=== PATIENT | male | born 1980 | race Caucasian/White ===

== ENCOUNTER 2019-12-03 23:14 | Emergency (ER) | payer SELFPAY ==
[2019-12-03 23:19] VITALS: BP 116/93; PULSE 97; RESP 18; TEMP 36.7; O2SAT 96; BMI 27.3
[2019-12-03 23:25] VITALS: PULSE 100
--- NOTE | 2019-12-03 23:25 | XRR_ITS ---
PROCEDURE INFORMATION: Exam: XR Left Hand Exam date and time: 12/03/2019 11:48 PM Age: 39 years old Clinical indication: Injury or trauma; Injury history: Smash injury 1 week ago; Initial encounter; Crushing; Hand; Left; Injury details: Smashed 3rd digit one week ago, now with pain redness swelling; Prior surgery; Surgery type: PT amputated 5th digit; Additional info: Smash injury to middle finger TECHNIQUE: Imaging protocol: XR Left hand. Views: Frontal, lateral, and oblique views. COMPARISON: No relevant prior studies available. FINDINGS: Bones/joints: No acute bony abnormality identified. Soft tissues: Third digit soft tissue swelling. XR/XR hand LT min 3V* [id number] IMPRESSION: No acute bony injury identified.
[2019-12-03] MEDS: HYDROcodone-acetaminophen 7.5-325 mg Tablet 1 TAB PO (23:28)
--- NOTE | 2019-12-03 23:28 | ED_ITS ---
HPI - Extremity Problem General: Chief complaint: Extremity Injury, Upper Stated complaint: smash finger with hammer Time Seen by Provider: 12/03/19 23:19 History of Present Illness: HPI Narrative: Patient is a 39-year-old male who comes to the ED with a smash injury to finger on left hand. Patient says about a week ago he smashed his third digit on left hand with a hammer twice in 1 day. Since injury it is continued to swell and become more painful. He reports pain is a 10 out of 10. Patient also says that he stepped on a nail a week ago., But does not believe in getting a tetanus shot. Associated symptoms: Deny chest pain, fever(s) or rash Review of Systems Const: Denies: fever(s), chills or fatigue Eyes: Denies: change in vision or eye discomfort ENMT: Denies: throat pain, odynophagia, nasal discharge or nasal congestion Card: Denies: chest pain, palpitations, edema, swelling of feet/ankles, dyspnea on exertion or orthopnea Resp: Denies: dyspnea, productive cough or non-productive cough GI: Denies: abdominal pain, nausea, vomiting, diarrhea, constipation or hematochezia : Denies: flank pain, difficulty urinating, dysuria or hematuria Musc: Reports: extremity pain (pain in 3rd digit of left hand) and extremity swelling (Third digit of left hand.); Denies: neck pain or back pain Skin/Breast: Reports: sores (Patient has 2 sores that have scabbed over on third digit of left hand); Denies: rash or new lesions Neuro: Denies: headache(s), numbness in extremities or weakness in extremities Physical Exam Const: COMMON NORMALS: patient oriented x3 and alert GENERAL APPEARANCE: cooperative; not comfortable (Patient appears uncomfortable and in pain due to left finger injury.) HENMT: COMMON NORMALS: normocephalic HEAD & SCALP: normocephalic MOUTH: Normal oral and palatal mucosa present THROAT: posterior oropharynx normal and uvula midline Neck/C-Spine: COMMON NORMALS: supple GENERAL: Yes normal visual inspection Resp: COMMON NORMALS: normal respiratory effort, No retractions, No use of accessory muscles and clear to auscultation bilaterally AUSCULTATION: clear to auscultation bilaterally Cardio: COMMON NORMALS: regular rate, regular rhythm, S1 normal heart sound present, S2 normal heart sound present, No gallops present (Cardio), No clicks present (Cardio), No murmurs present (Cardio) and Peripheral pulses 2+ throughout RATE: regular rate RHYTHM: regular rhythm HEART SOUNDS: S1 normal heart sound present and S2 normal heart sound present PERIPHERAL PULSES: Peripheral pulses 2+ throughout GI: COMMON NORMALS: Normal to inspection, nondistended, normoactive bowel sounds present, Soft to palpation, non-tender and no masses PALPATION: Yes Soft to palpation : COMMON NORMALS: Yes no CVA tenderness BLADDER/KIDNEY EXAM: Yes no CVA tenderness Back/Pelvis: COMMON NORMALS: no CVA tenderness Extremity: NARRATIVE EXTREMITY EXAM: Third digit of left hand has significant edema around the PIP joint. There also 2 abrasions that are currently healing well and have scabs on them and these are both located on the third digit of left hand as well. There is warmth, tenderness and surrounding erythema which is suggestive of cellulitis. GENERAL: Yes normal exam except as noted Neuro: COMMON NORMALS: patient oriented x3 and moves all extremities SENSORIUM/ORIENTATION: Yes alert Skin: GENERAL SKIN EXAM: dry skin Course Vital Signs: Vital signs: Vital Signs Temperature 98.1 F 12/03/19 23:19 Pulse Rate 95 12/04/19 00:40 Respiratory Rate 18 12/04/19 00:40 Blood Pressure 116/93 12/03/19 23:19 Pulse Oximetry 96 12/04/19 00:40 MDM - Extremity (Nontraumatic) MDM Narrative: Medical decision making narrative: Patient is a 39-year-old male comes to the ED with a smash injury to third digit on left hand. Patient says approximately a week ago he hit his third digit twice with a hammer. Injury also created some abrasions to third digit a week ago. Patient now has increased swelling to finger and pain. Exam shows some swelling to the PIP joint of third digit of left hand. There is also some erythema, tenderness and warmth present around abrasions on third digit, suggestive of cellulitis. X-ray of left hand showed possible old fracture that is healing of the proximal phalanx. Due to patient's swelling and pain and mechanism of injury placed an order with case management for patient be referred to orthopedic. Patient refused tetanus shot and says he does not believe in getting them. I gave patient IM morphine and it helped his pain greatly. He was given a dose of Bactrim while here in the ED for cellulitis and sent home with a prescription of Bactrim. I told patient to return to the ED in the next couple of days if symptoms do not improve. I informed him that case management should be contacting him in the next several days to set up an appointment with orthopedic doctor. Rest, apply cold pack and take ibuprofen for pain. Patient understood and agreed with plan. Imaging Data^: Xray Ortho: Attestation: I personally reviewed and interpreted this imaging study as follows: My impression: Left hand [id number] fracture and started healing on proximal phalange bone of third digit. Discharge Plan Discharge Patient Disposition: Home Clinical Impression: Cellulitis Qualifiers: Site of cellulitis: extremity Site of cellulitis of extremity: finger Laterality: left Qualified Code(s): L03.012 - Cellulitis of left finger Injury, crush, finger Qualifiers: Encounter type: initial encounter Qualified Code(s): S67.10XA - Crushing injury of unspecified finger(s), initial encounter Condition: Stable Prescriptions: New Bactrim DS 800-160 mg tablet 1 tab PO BID 7 Days Qty: 14 RF: 0 Discharge Orders: Discharge Order (Routine); Ordered 12/04/19 Ordered By: Charlie Perez Discharge Diet: Regular Discharge Activity: Increase activity as tolerated Patient Instructions: Cellulitis (ED) Activity Restrictions/Additional Instructions: Follow-up with medical provider as directed. Case management should be contacting you in the next several days set up an appointment with orthopedic doctor. Take medications as prescribed. Take ibuprofen or Tylenol for pain. R eturn to the ER or your medical provider if condition worsens. Please read and understand discharge instructions. If any questions, please ask. Discharge Date/Time: 12/04/19 00:41 Coding Level of Care Code ED Farm Machine Operator for Karey Ayers Exam Comprehensive
[2019-12-04 00:07] VITALS: RESP 24
[2019-12-04] MEDS: morphine 4 mg/mL SDV 1 mL IM (00:07)
[2019-12-04] MEDS: sulfamethoxazole-trimeth DS 160-800 mg Tablet 1 TAB PO (00:09)
[2019-12-04] MEDS: HYDROcodone-acetaminophen 7.5-325 mg Tablet 2 TAB PO (00:35)
[2019-12-04 00:40] VITALS: PULSE 95; RESP 18; O2SAT 96
--- NOTE | 2019-12-04 09:50 | DCPLANNER ---
manager ecommerce had message to schedule a follow up appointment for patient with ortho. manager ecommerce called the ortho clinic, spoke with Margaret, gave clinic patients information. manager ecommerce was told that patients information would be printed and reviewed. Clinic will call patient with appointment information.
--- NOTE | 2019-12-04 15:37 | DCPLANNER ---
Isabela from ortho called case management manager and informed case management manager that after patients information was reviewed, that it is recommended that patient follow up with primary care physician. If patient is still having pain in the future that he can be referred back to the clinic from his primary care. Clinic has spoke with patient about this and patient is understanding.
== END 2019-12-04 00:41 | disposition home or self-care (01) ==
PROVIDERS: Emergency Provider Physician Assistant
DX: S67.193A Crushing injury of left middle finger, initial encounter (principal); L03.012 Cellulitis of left finger; W20.8XXA Other cause of strike by thrown, projected or falling object, initial encounter
CPT/HCPCS: 12345; 73130; 96372; 99281; 99282; 99283; J2270

== ENCOUNTER 2020-09-09 15:01 | Emergency (ER) | payer MEDICAID, SELFPAY ==
[2020-09-09 15:25] VITALS: BP 163/77; PULSE 93; RESP 18; TEMP 36.7; O2SAT 99; BMI 26.2
[2020-09-09 16:00] LABS: Basophils # 0.1 10^3/uL (0.0-0.1); Basophils % 0.6 %; Eosinophils # 0.9 10^3/uL (0.0-0.8); Eosinophils % 9.4 %; Hematocrit 29.8 % (42.0-52.0); Hemoglobin 9.9 g/dL (11.7-16.6); Lymphocytes # 3.3 10^3/uL (0.8-4.8); Lymphocytes % 34.8 %; Mean Corpuscular HGB Conc 33.2 g/dL (30.0-36.0); Mean Corpuscular Hemoglobin 29.6 pg (28.0-34.0); Mean Platelet Volume 10.2 fL (7.4-10.4); Monocytes # 0.5 10^3/uL (0.2-0.9); Monocytes % 5.6 %; Neutrophils # 4.67 10^3/uL (1.8-7.7); Neutrophils % 49.3 %; Nucleated Red Blood Cells % 0 %; Platelet Count 270 10^3/cmm (130-400); Red Blood Count 3.35 10^6/uL (4.1-5.3); Red Cell Distribution Width 12.7 % (12.1-15.1); White Blood Count 9.5 10^3/uL (4.0-10.0)
--- NOTE | 2020-09-09 16:11 | CTR_ITS ---
PROCEDURE INFORMATION: Exam: CT Abdomen And Pelvis With Contrast Exam date and time: 09/09/2020 4:11 PM Age: 40 years old Clinical indication: Other: Bloody stool; Abdominal pain; Localized; Left lower quadrant (llq); Additional info: Acute gi bleed. Bright blood/rectum. Large quantity TECHNIQUE: Imaging protocol: Computed tomography of the abdomen and pelvis with contrast. Radiation optimization: All CT scans at this facility use at least one of these dose optimization techniques: automated exposure control; mA and/or kV adjustment per patient size (includes targeted exams where dose is matched to clinical indication); or iterative reconstruction. Contrast material: OMNI 300; Contrast volume: 95 ml; Contrast route: INTRAVENOUS (IV); COMPARISON: [facility] 02/23/2018 2:00 PM RADIATION DOSE METRICS: Total DLP (mGy-cm): 1373.44 FINDINGS: Liver: Normal. No mass. Gallbladder and bile ducts: No wall thickening. Calcified stones. No ductal dilation. Pancreas: Normal. No ductal dilation. Spleen: Normal. No splenomegaly. Adrenal glands: Normal. No mass. Kidneys and ureters: Incidental finding of small bilateral simple renal cysts. No hydronephrosis. Nonobstructing calcified left kidney upper pole stone. Stomach and bowel: Heterogeneous fluid in the lumen of the rectum may represent blood products. Negative for active contrast extravasation into the bowel lumen. Moderate fecal volume of the proximal colon. No focal bowel wall mass. No focal bowel wall inflammatory changes. Negative for obstruction. Negative for perforation. Appendix: No evidence of appendicitis. Intraperitoneal space: See Stomach and bowel finding. Vasculature: Patent, unremarkable mesenteric vasculature. Normal abdominal aorta. Lymph nodes: Unremarkable. No enlarged lymph nodes. Urinary bladder: Unremarkable as visualized. Reproductive: Unremarkable as visualized. Bones/joints: Unremarkable. No acute fracture. Soft tissues: Unremarkable. CT/CT abdomen pelvis w con* [id number] IMPRESSION: 1. Negative for active gastrointestinal bleeding, although this is not a dedicated CT angiogram evaluation. 2. Heterogeneous fluid in the lumen of the rectum may represent blood products. No source of bleeding is identified. COMMENTS: Consistent with the [employer]'s Incidental Findings Committee white paper (J Am John Radiol 2018): Any incidental renal lesion less than 1 cm or classified as too small to characterize, or any incidental cystic renal lesion characterized as simple-appearing, is likely benign. No follow-up imaging is recommended for these lesions per consensus recommendations based on imaging criteria. Radiation Dose CTDIVOL = (mGy): DLP = 1373.44 (mGy-cm)
--- NOTE | 2020-09-09 16:13 | ED_ITS ---
HPI - GI Bleed General: Chief complaint: GI Bleed Stated complaint: BLEEDING FROM RECTUM Time Seen by Provider: 09/09/20 15:45 History of Present Illness: HPI Narrative: The patient is a 40-year-old male with past medical history upper GI ulcers and he says he possibly had a hemorrhoid at one time. He comes to the ER complaining of 7 days of bright red blood per his rectum. Past 4 days it has been severe and he has had at least 3 bowel movements per day of completely bright red blood with clots. There may be a small piece of feces in it but otherwise completely bright red blood. He brings a Ziploc bag with several ounces of blood with clots in it he passed from his rectum. MD complaint: gross hematochezia Onset (ago): week(s) (1) Pain Consistency: intermittent Severity: severe Relieving factors: none Exacerbating factors: none Context: hemorrhoids Associated symptoms: Reports no associated symptoms; Denies abdominal pain, headache(s) or rash Review of Systems General: Reports: 10 or more systems reviewed and unremarkable except in HPI and below Const: Denies: fatigue Eyes: Denies: change in vision, blurry vision or eye redness ENMT: Denies: throat pain, swelling of lips/tongue, ear or mastoid pain or nasal congestion Card: Denies: chest pain, palpitations, irregular heart rhythm, edema, dyspnea on exertion or orthopnea Resp: Denies: dyspnea, productive cough or non-productive cough GI: Reports: hematochezia; Denies: abdominal pain, diarrhea or GI cramping : Denies: flank pain, urinary frequency or urinary urgency Musc: Denies: neck pain, back pain, extremity pain, joint pain, joint redness, limited range of motion or muscle weakness Skin/Breast: Denies: rash, pruritus, erythema, skin pain or skin tenderness Neuro: Denies: headache(s), numbness in extremities, weakness in extremities, sensory changes, difficulty walking, dizziness, confusion or Slurred speech present Psych: Denies: anxiety or depression Endo: Denies: polyuria All/Imm: Denies: urticaria, throat swelling or tongue swelling Physical Exam Const: COMMON NORMALS: no acute distress, average body habitus, patient oriented x3, no limitations, healthy appearing, alert and well nourished GENERAL APPEARANCE: cooperative, comfortable, well kempt and well developed ORIENTATION/CONSCIOUSNESS: Yes awake, Yes oriented to person, Yes oriented to place and Yes oriented to time HENMT: COMMON NORMALS: normocephalic, external ears normal and Normal external nose present HEAD & SCALP: normal to inspection and normocephalic NOSE: Normal external nose present EXTERNAL EAR: Yes external ears normal MOUTH: Normal oral and palatal mucosa present THROAT: posterior oropharynx normal Eye: COMMON NORMALS: Equal, round and reactive pupils present and EOMs intact bilaterally GENERAL EYE: appearance normal, both eyes and all related structures PUPIL: Yes Equal, round and reactive pupils present Neck/C-Spine: COMMON NORMALS: full ROM, no lymphadenopathy, no meningeal signs and no JVD GENERAL: Yes normal visual inspection Lymph: LYMPHATIC: no lymphadenopathy noted Chest: COMMONS NORMALS: normal inspection of the chest and normal palpation of entire chest wall Resp: COMMON NORMALS: normal respiratory effort, No retractions, No use of accessory muscles, clear to auscultation bilaterally and percussion normal EFFORT & INSPECTION: Yes able to speak in complete sentences AUSCULTATION: clear to auscultation bilaterally PERCUSSION: percussion normal Cardio: COMMON NORMALS: no JVD, regular rate, regular rhythm, S1 normal heart sound present, S2 normal heart sound present and Peripheral pulses 2+ throughout RATE: regular rate RHYTHM: regular rhythm HEART SOUNDS: S1 normal heart sound present and S2 normal heart sound present PERIPHERAL PULSES: Peripheral pulses 2+ throughout GI: COMMON NORMALS: Normal to inspection, nondistended, normoactive bowel sounds present, Soft to palpation, non-tender and no masses INSPECTION: Yes normal to inspection PALPATION: Yes Soft to palpation : COMMON NORMALS: Yes no CVA tenderness BLADDER/KIDNEY EXAM: Yes no CVA tenderness Back/Pelvis: COMMON NORMALS: no CVA tenderness, thoracic and lumbar spine normal to inspection, no thoracic nor lumbar tenderness and thoraco-lumbar ROM normal Extremity: COMMON NORMALS: normal to inspection, full ROM, capillary refill normal, no joint enlargement and no pedal edema GENERAL: Yes normal exam except as noted Neuro: COMMON NORMALS: patient oriented x3, CN's II-XII intact bilaterally, moves all extremities, no focal motor deficits, no sensory deficits noted and gait normal SENSORIUM/ORIENTATION: Yes alert, Yes oriented to person, Yes oriented to place and Yes oriented to time MENINGEAL SIGNS: Yes no meningeal signs Psych: COMMON NORMALS: mental status grossly normal, Normal thought process present, cooperative, normal affect and speech normal APPEARANCE: Yes well kempt ATTITUDE: Yes calm SPEECH: Yes normal speech THOUGHT PROCESS: Normal thought process present Skin: COMMON NORMALS: no rashes or lesions noted GENERAL SKIN EXAM: no rashes or lesions noted Course Vital Signs: Vital signs: Vital Signs Temperature 98.0 F 09/09/20 15:25 Pulse Rate 84 09/09/20 19:23 Respiratory Rate 16 09/09/20 19:23 Blood Pressure 133/71 09/09/20 19:23 Pulse Oximetry 98 09/09/20 19:23 MDM - GI Bleed MDM Narrative: Medical decision making narrative: Patient came in with significant rectal bleeding. He brought in a Ziploc bag with approximately 6 ounces of hematochezia. He has been having this for 7 days worse the last [address] Blandon his hemoglobin is 9.9 and vitals are stable. He says he will see and likely scope in the morning. Discussed with Dr. Calzada who accepts for admit. Lab Data: Labs: Lab Results 09/09/20 09/09/20 09/09/20 Range/Units 15:26 15:46 15:46 WBC 9.5 (4.0-10.0) 10^3/ uL RBC 3.35 L (4.1-5.3) 10^6/u L Hgb 9.9 L (11.7-16.6) g/dL Hct 29.8 L (42.0-52.0) % MCV 89.0 (80-94) fL MCH 29.6 (28.0-34.0) pg MCHC 33.2 (30.0-36.0) g/dL RDW 12.7 (12.1-15.1) % Plt Count 270 (130-400) 10^3/c mm MPV 10.2 (7.4-10.4) fL Neut % (Auto) 49.3 % Lymph % (Auto) 34.8 % Reagan % (Auto) 5.6 % Eos % (Auto) 9.4 % Baso % (Auto) 0.6 % Neut # (Auto) 4.67 (1.8-7.7) 10^3/u L Lymph # (Auto) 3.3 (0.8-4.8) 10^3/u L Reagan # (Auto) 0.5 (0.2-0.9) 10^3/u L Eos # (Auto) 0.9 H (0.0-0.8) 10^3/u L Baso # (Auto) 0.1 (0.0-0.1) 10^3/u L Nucleated RBC % (a uto) 0 % Nucleated RBCs # 0.0 /100WBC PT 14.70 (12.1-14.9) SECO NDS INR 1.12 (0.8-1.2) Sodium (136-145) mmol/L Potassium (3.5-5.1) mmol/L Chloride (98-107) mmol/L Carbon Dioxide (22-29) mmol/L Anion Gap (5-19) BUN (6-20) mg/dL Creatinine (0.7-1.2) mg/dL GFR Calculation (90-130) mL/min Glucose (65-115) mg/dL Calculated Osmolal ity (285-295) mOsm/k g Lactic Acid 1.3 (0.5-2.2) mmol/L Calcium (8.5-10.5) mg/dL Total Bilirubin (0.15-1.2) mg/dL AST (0-40) U/L ALT (0-41) U/L Alkaline Phosphata se (40-130) IU/L Total Protein (6.6-8.7) g/dL Albumin (3.5-5.2) g/dL Globulin (1.3-4.6) g/dL Blood Type Rho(D) Type Antibody Screen 09/09/20 09/09/20 Range/Units 15:46 16:00 WBC (4.0-10.0) 10^3/ uL RBC (4.1-5.3) 10^6/u L Hgb (11.7-16.6) g/dL Hct (42.0-52.0) % MCV (80-94) fL MCH (28.0-34.0) pg MCHC (30.0-36.0) g/dL RDW (12.1-15.1) % Plt Count (130-400) 10^3/c mm MPV (7.4-10.4) fL Neut % (Auto) % Lymph % (Auto) % Reagan % (Auto) % Eos % (Auto) % Baso % (Auto) % Neut # (Auto) (1.8-7.7) 10^3/u L Lymph # (Auto) (0.8-4.8) 10^3/u L Reagan # (Auto) (0.2-0.9) 10^3/u L Eos # (Auto) (0.0-0.8) 10^3/u L Baso # (Auto) (0.0-0.1) 10^3/u L Nucleated RBC % (a uto) % Nucleated RBCs # /100WBC PT (12.1-14.9) SECO NDS INR (0.8-1.2) Sodium 136 (136-145) mmol/L Potassium 3.9 (3.5-5.1) mmol/L Chloride 102 (98-107) mmol/L Carbon Dioxide 26 (22-29) mmol/L Anion Gap 11.9 (5-19) BUN 14 (6-20) mg/dL Creatinine 0.7 (0.7-1.2) mg/dL GFR Calculation 123.7 (90-130) mL/min Glucose 136 H (65-115) mg/dL Calculated Osmolal ity 285 (285-295) mOsm/k g Lactic Acid (0.5-2.2) mmol/L Calcium 8.5 (8.5-10.5) mg/dL Total Bilirubin 0.2 (0.15-1.2) mg/dL AST 16 (0-40) U/L ALT 14 (0-41) U/L Alkaline Phosphata se 78 (40-130) IU/L Total Protein 6.2 L (6.6-8.7) g/dL Albumin 4.3 (3.5-5.2) g/dL Globulin 1.9 (1.3-4.6) g/dL Blood Type A Positive Rho(D) Type Positive / 4+ Antibody Screen Negative Discharge Plan Discharge Patient Disposition: Admitted As Inpatient Clinical Impression: GI bleed, Hematochezia Condition: Stable Coding Level of Care Code ED Textiles And Clothing Teacher for Chg Fwd Exam Comprehensive
[2020-09-09 16:19] LABS: Alanine Aminotransferase 14 U/L (0-41); Albumin Level 4.3 g/dL (3.5-5.2); Alkaline Phosphatase 78 IU/L (40-130); Anion Gap 11.9 (5-19); Aspartate Amino Transferase 16 U/L (0-40); Blood Urea Nitrogen 14 mg/dL (6-20); Calcium 8.5 mg/dL (8.5-10.5); Carbon Dioxide 26 mmol/L (22-29); Chloride 102 mmol/L (98-107); Globulin 1.9 g/dL (1.3-4.6); Glomerular Filtration Rate 123.7 mL/min (90-130); Glucose 136 mg/dL (65-115); Osmolality Calculated 285 mOsm/kg (285-295); Potassium 3.9 mmol/L (3.5-5.1); Sodium 136 mmol/L (136-145); Total Bilirubin 0.2 mg/dL (0.15-1.2); Total Protein 6.2 g/dL (6.6-8.7)
[2020-09-09 16:28] LABS: INR 1.12 (0.8-1.2)
[2020-09-09 16:45] VITALS: BP 131/82; PULSE 86; RESP 18; O2SAT 100
[2020-09-09] MEDS: iohexol 300 mg/mL 100 mL Btl IV (16:59)
[2020-09-09 17:31] LABS: Lactic Sepsis W/Reflex 1.3 mmol/L (0.5-2.2)
[2020-09-09 18:22] VITALS: BP 142/95; PULSE 85; RESP 16; O2SAT 97
--- NOTE | 2020-09-09 19:22 | P.HP_ITS ---
Providers/Chief Complaint Chief Complaint: BLEEDING FROM RECTUM History of Present Illness Viral Patel is a 40 year old male Who presented today with chief complaint of bright bleed per rectum. Patient is stating that he went for camping 2 weeks ago at [facility], 1 week after he start experiencing abdominal cramps associated with bright bleed per rectum, he has been noticing blood clots as well. His symptoms worsened in the last 4 days which he is describing as bloody bowel movement almost every hour. He decided to come to the hospital today for worsening of his symptoms. He has not taken any antibiotics recently, no fever, chest pain, shortness of breath. He considers himself very active. He smokes 1 pack/week, drinks 7 pack/beer every night, uses kratom. 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 these days he has been using 4-8 tablets of ibuprofen on regular days as well. He has not noticed any fever or severe abdominal pain. Diagnostics in the ER revealed normal blood pressure systolic blood pressure 129 mmHg, hemoglobin 9.9, no active abdominal pain Review of Systems Narrative: No headache Complaining of lethargy and fatigue No sore throat No chest pain No shortness of breath No muscle pain No joint pain No skin rash No urinary frequency No signs of depression or anxiety No active abdominal pain, positive blood in stool No muscle weakness No vision changes No easy bruising or bleeding Medications/Allergies Home Medications Medication Instructions Recorded Confirmed Last Taken Type acetaminophen [Tylenol] 325 - 650 mg PO Q4H PRN 09/09/20 09/09/20 09/09/20 History ibuprofen 200 - 400 mg PO Q4H PRN 09/09/20 09/09/20 09/08/20 History Allergies Allergy/AdvReac Type Severity Reaction Status Date / Time No Known Allergies Allergy Verified 12/03/19 23:19 PFSH Acute PFSH: Medical History (Updated 09/09/20 @ 21:42 by Hailey Calzada MD) Gastric ulcer Internal hemorrhoids Surgical History (Updated 09/09/20 @ 21:42 by Hailey Calzada MD) Previous back surgery Family History (Updated 09/09/20 @ 21:43 by Hailey Calzada MD) Denies family history of Clotting disorder Bleeding disorder Family history of premature coronary artery disease Social History (Updated 09/09/20 @ 21:45 by Hailey Calzada MD) Smoking and tobacco status: current every day smoker cigarettes Alcohol intake: current Alcohol intake frequency: 3 or more drinks per day Alcohol type: beer Substance/Drug Use: current Substance/Drug use type: Other Other substance/drug use details: ofelia Household members: spouse Housing: House 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, 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 Vitals/I&O/Wt Last Vital Signs Temp 98.0 F 09/09/20 15:25 Pulse 85 09/09/20 18:22 Resp 16 09/09/20 18:22 BP 142/95 09/09/20 18:22 Pulse Ox 97 09/09/20 18:22 Weight last 48 hrs Weight 80.739 kg Physical Exam Narrative: EXAM NARRATIVE: This is a pleasant cooperative young male Who is currently laying supine without any active discomfort EOMI, PERRLA S1, S2 sinus rhythm No signs of murmur Bilateral breath sound without adventitious rhonchi or crackles No audible stridor or wheezing Abdominal exam without any tenderness no signs of peritonitis Lower extremity no edema gangrene ulcer Pale complexion Propine mood and affect No neurological deficit No active emesis Data : 09/09/20 15:46 09/09/20 15:46 A&P Assessment and plan (1) GI bleed: Status: Acute (2) Hematochezia: Status: Acute Additional A&P Information Hematochezia previous history of gastric ulcer secondary to NSAID use, active smoker and drinks 7 beers a day Does endorse history of internal hemorrhoids as well N.p.o. Protonix 40 IV twice daily Check H&H at [address] Blandon consulted, planning for endoscopy in the morning I will keep him on maintenance fluid for now, will transfuse if he keeps having hematochezia during his hospitalization N.p.o. Full code DVT prophylaxis contraindicated Attestations Medical Necessity Statement*: Anticipating stay in the hospital because more than 2 midnights for evaluation of hematochezia, will need endoscopy Time Spent in Patient Care: 30min Coding Level of Care Code Acute Port Cdl A Driver for Karey Fwd Diagnoses GI bleed K92.2 Hematochezia K92.1
[2020-09-09 19:23] VITALS: BP 133/71; PULSE 84; RESP 16; O2SAT 98
[2020-09-09 20:51] VITALS: BP 141/83; PULSE 101; O2SAT 100
--- NOTE | 2020-09-09 21:04 | PC.NURSE ---
2100 foot piece assembler approached me that patient and left the room. I went to patient room and then outside patient has left. I reported this to Dr Higgins and that patient had an IV in.
== END 2020-09-09 21:10 | disposition admitted as inpatient to this hospital (09) ==
PROVIDERS: Emergency Provider Family Medicine
DX: K92.2 Gastrointestinal hemorrhage, unspecified (principal); K92.1 Melena
CPT/HCPCS: 74177; 80053; 83605; 85025; 85610; 86850; 86900; 99284; Q9967

== ENCOUNTER 2021-06-26 18:49 | Emergency (ER) | payer MEDICAID, SELFPAY ==
[2021-06-26 18:54] VITALS: BP 158/98; PULSE 69; RESP 18; TEMP 36.2; O2SAT 95; BMI 31.0
--- NOTE | 2021-06-26 20:08 | XRR_ITS ---
PROCEDURE INFORMATION: Exam: XR Right Wrist Exam date and time: 06/26/2021 8:12 PM Age: 41 years old Clinical indication: Pain and injury or trauma; Other: Dog bite; Laceration; Wrist; Right; Additional info: Dog bite injury to wrist TECHNIQUE: Imaging protocol: XR Right wrist. Views: 3 or more views. COMPARISON: No relevant prior studies available. FINDINGS: Bones/joints: Serpiginous lucent line in the waist of the scaphoid on the oblique view is noted and is favored to be the nutrient vascular channel. No additional acute bony abnormality. Soft tissues: There is abundant soft tissue edema and subcutaneous emphysema especially along the radial aspect of the wrist and distal forearm. No foreign body. Soft tissue laceration over the dorsum of the wrist is noted. XR/XR wrist RT min 3V* [id number] IMPRESSION: 1. There is abundant soft tissue edema and subcutaneous emphysema especially along the radial aspect of the wrist and distal forearm. 2. Serpiginous lucent line in the waist of the scaphoid on the oblique view is noted and is favored to be the nutrient vascular channel. Please correlate clinically if there is pain overlying the scaphoid.
--- NOTE | 2021-06-26 20:09 | ED_ITS ---
HPI - Animal Bite General: Chief Complaint: Animal Bite Stated Complaint: Rt Hand Injury(Dog Fight) Deep Time Seen by Provider: 06/26/21 19:53 History of Present Illness: Patient is a 41-year-old male comes to the ED for dog bite injury to right wrist. Injury occurred just prior to arrival. Patient says his dog and a neighbors dog started fighting. He went to break up the dog fight and the neighbors ayaan bit his right wrist. He has 2 lacerations to his right wrist. He says the neighbors dog was fully vaccinated including rabies shot. He still has full range of motion in wrist. After injury he did not do anything to clean out laceration and wrapped it up and came here to the ED. I offered him rabies prophylaxis and updated tetanus shot here in the ED and he refused both. Associated symptoms: Deny chills, fever(s) or headache(s) Review of Systems Const: Denies: fever(s), chills or fatigue Eyes: Denies: change in vision or eye discomfort ENMT: Denies: throat pain, odynophagia, nasal discharge or nasal congestion Card: Denies: chest pain, palpitations, edema, swelling of feet/ankles, dyspnea on exertion or orthopnea Resp: Denies: dyspnea, productive cough or non-productive cough GI: Denies: abdominal pain, nausea, vomiting, diarrhea, constipation or hematochezia : Denies: flank pain, difficulty urinating, dysuria or hematuria Musc: Denies: neck pain, back pain or extremity swelling Skin/Breast: Reports: new lesions (Two lacerations to right wrist); Denies: rash Neuro: Denies: headache(s), numbness in extremities or weakness in extremities PFSH ED PFSH: Medical History Gastric ulcer Internal hemorrhoids Surgical History Previous back surgery Family History Denies family history of Clotting disorder Bleeding disorder Family history of premature coronary artery disease Social History Smoking and tobacco status: current every day smoker cigarettes Alcohol intake: current Alcohol intake frequency: 3 or more drinks per day Alcohol type: beer Household members: spouse Housing: House 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, 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 Physical Exam Const: COMMON NORMALS: no acute distress, patient oriented x3 and alert GENERAL APPEARANCE: cooperative and comfortable HENMT: COMMON NORMALS: normocephalic HEAD & SCALP: normocephalic MOUTH: Normal oral and palatal mucosa present THROAT: posterior oropharynx normal and uvula midline Neck/C-Spine: COMMON NORMALS: supple GENERAL: Yes normal visual inspection Resp: COMMON NORMALS: normal respiratory effort, No retractions, No use of accessory muscles and clear to auscultation bilaterally AUSCULTATION: clear to auscultation bilaterally Cardio: COMMON NORMALS: regular rate, regular rhythm, S1 normal heart sound present, S2 normal heart sound present, No gallops present (Cardio), No clicks present (Cardio), No murmurs present (Cardio) and Peripheral pulses 2+ throughout RATE: regular rate RHYTHM: regular rhythm HEART SOUNDS: S1 normal heart sound present and S2 normal heart sound present PERIPHERAL PULSES: Peripheral pulses 2+ throughout GI: COMMON NORMALS: Normal to inspection, nondistended, normoactive bowel sounds present, Soft to palpation, non-tender and no masses PALPATION: Yes Soft to palpation : COMMON NORMALS: Yes no CVA tenderness BLADDER/KIDNEY EXAM: Yes no CVA tenderness Back/Pelvis: COMMON NORMALS: no CVA tenderness Extremity: COMMON NORMALS: full ROM and capillary refill normal NARRATIVE EXTREMITY EXAM: Right wrist?4 cm superficial linear laceration to dorsal aspect of wrist. He has another superficial 1.5 cm linear laceration to medial aspect of wrist. No active bleeding. He has full range of motion in right wrist and is neurovascular tact. Patient has no palpable tenderness around scaphoid. He is also able to weight-bear on wrist when getting up out of chair. Neuro: COMMON NORMALS: patient oriented x3 and moves all extremities SENSORIUM/ORIENTATION: Yes alert Skin: GENERAL SKIN EXAM: dry skin Procedures Laceration Laceration 1: Site: upper extremity (Wrist) Side (If applicable): right Size (cm): 4 Description: linear and clean Depth: simple, single layer Local Anesthetic: lidocaine 1% Amount of anesthesia used (mL): 10 Pre-repair: irrigated extensively (The nurse irrigated laceration extensively with normal saline and beta iodine) Skin layer closed with: nylon Size (cm): 4-0 Number of sutures: 9 Technique: simple, interrupted Laceration 2: Site: upper extremity (Wrist) Side (If applicable): right Size (cm): 1.5 Description: linear and clean Depth: simple, single layer Local Anesthetic: lidocaine 1% Amount of anesthesia used (mL): 5 Pre-repair: irrigated extensively (Irrigated extensively with normal saline and beta iodine.) Number of sutures: 4 Technique: simple, interrupted Course Vital Signs: Vital signs: Vital Signs Temperature 97.2 F L 06/26/21 18:54 Pulse Rate 69 06/26/21 18:54 Respiratory Rate 18 06/26/21 18:54 Blood Pressure 158/98 06/26/21 18:54 Pulse Oximetry 95 06/26/21 18:54 MDM - Animal Bite Medical Decision Making Patient is a 41-year-old male comes to the ED with dog bite to right wrist. He was bit by neighbors dog when breaking a fight between dogs. Patient said dog is fully vaccinated including rabies. I offered him rabies prophylaxis and updated tetanus shot here in the ED and he refused both. patient has 2 lacerations to her right wrist. He has full range of motion in wrist and is neurovascular tact. The nurse irrigated the lacerations extensively with normal saline and beta iodine. X-ray of right wrist showed soft tissue injury and noted a possible fracture to the scaphoid. Patient had no palpable tenderness over scaphoid and clinically does not appear to have fracture. Lidocaine 1% was used as local and sutures were placed to close up laceration site. Patient was given a dose of Augmentin while here in the ED. He was told to follow-up with PCP in the next 7 to 10 days for reevaluation and to have sutures removed. I told him if he is still having some wrist pain in the next 5 to 7 days he can return to the ED for reevaluation. He was discharged home with a prescription for Augmentin. Patient understood and agreed with plan. Lab Data Radiology Impressions Wrist X-Ray 06/26/21 20:08 IMPRESSION: 1. There is abundant soft tissue edema and subcutaneous emphysema especially along the radial aspect of the wrist and distal forearm. 2. Serpiginous lucent line in the waist of the scaphoid on the oblique view is noted and is favored to be the nutrient vascular channel. Please correlate clinically if there is pain overlying the scaphoid. Discharge Plan Discharge Patient Disposition: Home Clinical Impression: Dog bite Qualifiers: Encounter type: initial encounter Qualified Code(s): W54.0XXA - Bitten by dog, initial encounter Condition: Stable Prescriptions: New Augmentin 500-125 mg tablet 1 tab PO BID 7 Days Qty: 14 0RF No Action Tylenol 325 mg Tablet 325 - 650 mg PO Q4H PRN (Reason: PAIN/HEADACHE) 0RF ibuprofen 200 mg Tablet 200 - 400 mg PO Q4H PRN (Reason: PAIN/HEADACHE) 0RF Discharge Orders: Discharge ED (Routine); Ordered 06/26/21 Ordered By: Charlie Perez Discharge Diet: Regular Discharge Activity: Increase activity as tolerated Activity Restrictions/Additional Instructions: Follow-up with medical provider as directed in the next 7 to 10 days to have sutures removed. Keep laceration site clean and dry daily using some soap and water. You can also put triple antibiotic ointment on laceration site and keep covered with bandage throughout the day. You can also apply triple antibiotic ointment on laceration sites daily to help prevent infection. Take medications as prescribed. Return to the ED if laceration site started to get infected. If you continue to have wrist pain 5+ days outside of injury return to the ED or your primary care provider for further evaluation of possible scaphoid fracture. Return to the ER or your medical provider if condition worsens. Please read and understand discharge instructions. Thank you for choosing [facility] for your healthcare needs today. Please realize this is an emergency room and that we are providing you with a medical screening exam and this may not be complete and all inclusive of all the testing and or work up that you may need to determine your ailment or severity of your illness. It is very important that you follow up as instructed or that you return to the Emergency Department should you have concerns or if your condition changes or worsens in any way. Coding Level of Care Code ED Scrap Iron Cutter for Karey Ayers Exam Comprehensive
[2021-06-26] MEDS: amoxicillin-clav 875-125 mg Tablet 1 TAB PO (20:34)
[2021-06-26] MEDS: neomycin-poly-bacitracin oint 0.9 gm Pkt 1 APPLIC TOPICAL (21:28)
== END 2021-06-26 21:29 | disposition home or self-care (01) ==
PROVIDERS: Emergency Provider Physician Assistant
DX: S61.511A Laceration without foreign body of right wrist, initial encounter (principal); W54.0XXA Bitten by dog, initial encounter; F17.210 Nicotine dependence, cigarettes, uncomplicated
CPT/HCPCS: 12002; 73110; 99283

== ENCOUNTER 2021-08-21 12:33 | Emergency (ER) | payer MEDICAID, SELFPAY ==
[2021-08-21 12:49] VITALS: BP 157/113; PULSE 89; RESP 18; TEMP 37.1; O2SAT 97; BMI 31.7
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
[2021-08-21 13:58] VITALS: BP 180/80; PULSE 84; O2SAT 93
== END 2021-08-21 14:00 | disposition home or self-care (01) ==
PROVIDERS: Emergency Provider Nurse Practitioner Family
DX: Z76.0 Encounter for issue of repeat prescription (principal); S12.9XXD Fracture of neck, unspecified, subsequent encounter; V89.2XXD Person injured in unspecified motor-vehicle accident, traffic, subsequent encounter
CPT/HCPCS: 99282

== ENCOUNTER → 2022-05-12 14:55 | Outpatient (BNVA) | payer BC, MEDICAID, SELFPAY | PROVIDERS: Visit Provider Orthopaedic Surgery | DX: M47.12 Other spondylosis with myelopathy, cervical region (principal) | CPT/HCPCS: 72040 ==

== ENCOUNTER 2022-07-06 07:51 | Outpatient (CLI) | payer BC, MEDICAID, SELFPAY ==
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
[2022-07-06] MEDS: gadobenate dimeglumine 20 mL vial IV (08:56)
== END 2022-07-06 07:52 | disposition home or self-care (01) ==
LOC: RAD 07:54
PROVIDERS: PCP Nurse Practitioner; Visit Provider Orthopaedic Surgery
DX: M48.02 Spinal stenosis, cervical region (principal); M54.2 Cervicalgia; M25.78 Osteophyte, vertebrae; V49.9XXA Car occupant (driver) (passenger) injured in unspecified traffic accident, initial encounter; Y93.9 Activity, unspecified; Y92.9 Unspecified place or not applicable; Y99.9 Unspecified external cause status
CPT/HCPCS: 72156; A9577

== ENCOUNTER 2022-08-01 23:00 | Emergency (ER) | payer BC, MEDICAID, SELFPAY ==
[2022-08-01 23:16] VITALS: BP 130/85; PULSE 72; RESP 16; TEMP 36.6; O2SAT 96; BMI 30.2
--- NOTE | 2022-08-02 01:33 | W.ED.ANIMALB ---
HPI - Animal Bite General: Chief Complaint: Animal Bite Stated Complaint: bug bite Time Seen by Provider: 08/01/22 23:14 History of Present Illness: Patient is a 42-year-old male who comes to the ED with tick bite on back and left shoulder. Patient says he noticed tick approximately 2 days ago and they removed the embedded tick. Over the last 2 days he has redness, swelling and warmth that has continued to get larger around tick bite. He states that the tick bite is a little sore. Denies any fevers, chills or any other symptoms. Associated symptoms: Deny chills, fever(s) or headache(s) Review of Systems Const: Denies: fever(s), chills or fatigue Eyes: Denies: change in vision or eye discomfort ENMT: Denies: throat pain, odynophagia, nasal discharge or nasal congestion Card: Denies: chest pain, palpitations, edema, swelling of feet/ankles, dyspnea on exertion or orthopnea Resp: Denies: dyspnea, productive cough or non-productive cough GI: Denies: abdominal pain, nausea, vomiting, diarrhea, constipation or hematochezia : Denies: flank pain, difficulty urinating, dysuria or hematuria Musc: Denies: neck pain, back pain or extremity swelling Skin/Breast: Reports: new lesions (Tick bite on back of left shoulder); Denies: rash Neuro: Denies: headache(s), numbness in extremities or weakness in extremities [facility] ED PFSH: Medical History Gastric ulcer Internal hemorrhoids Surgical History Previous back surgery Family History Denies family history of Clotting disorder Bleeding disorder Family history of premature coronary artery disease Social History Smoking and tobacco status: current every day smoker cigarettes Alcohol intake: current Alcohol intake frequency: 3 or more drinks per day Alcohol type: beer Substance/Drug Use: current Other substance/drug use details: ofelia Household members: spouse Housing: House 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, 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 Physical Exam Const: COMMON NORMALS: no acute distress, patient oriented x3, healthy appearing and alert GENERAL APPEARANCE: cooperative HENMT: COMMON NORMALS: normocephalic HEAD & SCALP: normocephalic MOUTH: Normal oral and palatal mucosa present THROAT: posterior oropharynx normal and uvula midline Neck/C-Spine: COMMON NORMALS: supple GENERAL: Yes normal visual inspection Resp: COMMON NORMALS: normal respiratory effort, No retractions, No use of accessory muscles and clear to auscultation bilaterally AUSCULTATION: clear to auscultation bilaterally Cardio: COMMON NORMALS: regular rate, regular rhythm, S1 normal heart sound present, S2 normal heart sound present, No gallops present (Cardio), No clicks present (Cardio), No murmurs present (Cardio) and Peripheral pulses 2+ throughout RATE: regular rate RHYTHM: regular rhythm HEART SOUNDS: S1 normal heart sound present and S2 normal heart sound present PERIPHERAL PULSES: Peripheral pulses 2+ throughout GI: COMMON NORMALS: Normal to inspection, nondistended, normoactive bowel sounds present, Soft to palpation, non-tender and no masses PALPATION: Yes Soft to palpation : COMMON NORMALS: Yes no CVA tenderness BLADDER/KIDNEY EXAM: Yes no CVA tenderness Back/Pelvis: COMMON NORMALS: no CVA tenderness Neuro: COMMON NORMALS: patient oriented x3 SENSORIUM/ORIENTATION: Yes alert GAIT: Yes Normal gait present Skin: NARRATIVE SKIN EXAM: Back of left shoulder?tick bite with no embedded tick seen. Surrounding erythema, warmth and tenderness. No purulent drainage seen. No erythema migrans rash. GENERAL SKIN EXAM: dry skin Course Vital Signs: Vital signs: Vital Signs Temperature 97.9 F 08/01/22 23:16 Pulse Rate 80 08/02/22 01:56 Respiratory Rate 18 08/02/22 01:56 Blood Pressure 127/103 08/02/22 01:56 Pulse Oximetry 95 08/02/22 01:56 Oxygen Delivery Me thod Room Air 08/01/22 23:16 MDM - Animal Bite Medical Decision Making Patient is a 42-year-old male who comes to the ED with tick bite on back and left shoulder. Patient says he noticed tick approximately 2 days ago and they removed the embedded tick. Over the last 2 days he has redness, swelling and warmth that has continued to get larger around tick bite. He states that the tick bite is a little sore. Denies any fevers, chills or any other symptoms. Vitals are stable. Patient appears nontoxic in no acute distress or pain. Back of left shoulder?tick bite with no embedded tick seen. Surrounding erythema, warmth and tenderness. No purulent drainage seen. No erythema migrans rash. Rest of exam is benign. Tick panel ordered and pending. He was given a dose of doxycycline here in the ED. He was diagnosed with tick bite and cellulitis and discharged home with a prescription for doxycycline. Told to follow-up with his PCP within the next week for reevaluation. He can check his patient portal or call [facility] to find out tick panel results in the next couple days. Return to ED precautions given. Patient understood and agreed with plan. Discharge Plan Discharge Patient Disposition: Home Clinical Impression: Cellulitis Tick bite Qualifiers: Encounter type: initial encounter Site of tick bite: shoulder Laterality: left Qualified Code(s): S40.262A - Insect bite (nonvenomous) of left shoulder, initial encounter Condition: Stable Prescriptions: New doxycycline hyclate 100 mg capsule 100 mg PO BID 10 Days Qty: 20 0RF No Action prednisone 20 mg tablet 20 mg PO DAILY Qty: 15 0RF Rx Instructions: 60mg on day 1,2,3 40mg on day 4,5 20mg on day 6,7 Tylenol 325 mg Tablet 325 - 650 mg PO Q4H PRN (Reason: PAIN/HEADACHE) ibuprofen 200 mg Tablet 200 - 400 mg PO Q4H PRN (Reason: PAIN/HEADACHE) ibuprofen 800 mg tablet 800 mg PO Q8H PRN (Reason: pain) Qty: 30 0RF omeprazole 40 mg capsule,delayed release(DR/EC) 40 mg PO DAILY Qty: 30 0RF Rx Instructions: take 30 minutes prior to first meal of day hydrocodone-acetaminophen 5-325 mg tablet 1 tab PO Q6H PRN (Reason: pain) Qty: 20 0RF Discharge Orders: Discharge ED (Routine); Ordered 08/02/22 Ordered By: Charlie Perez Referrals: Macario Amos FNP [Primary Care Provider] - Discharge Diet: Regular Discharge Activity: Increase activity as tolerated Patient Instructions: Cellulitis (ED), Tick Bite (ED) Activity Restrictions/Additional Instructions: Follow-up with medical provider as directed in the next 3 to 5 days for reevaluation. Tick panel lab is pending and results should be back within the next couple days so check your patient portal or call [facility] to find out results in the next couple days. Take medications as prescribed. Return to the ER or your medical provider if condition worsens. Please read and understand discharge instructions. Thank you for choosing [facility] for your healthcare needs today. Please realize this is an emergency room and that we are providing you with a medical screening exam and this may not be complete and all inclusive of all the testing and or work up that you may need to determine your ailment or severity of your illness. It is very important that you follow up as instructed or that you return to the Emergency Department should you have concerns or if your condition changes or worsens in any way. Coding Level of Care Code ED Sand Filler for Karey Ayers
[2022-08-02] MEDS: doxycycline 100 mg Tablet PO (01:42)
[2022-08-02 01:56] VITALS: BP 127/103; PULSE 80; RESP 18; O2SAT 95
[2022-08-04 13:45] LABS: Lyme AB Screen <0.90 index
[2022-08-09 16:59] LABS: RMSF IGG NOT DETECTED; RMSF IGM NOT DETECTED
[2022-08-10 17:35] LABS: E. Chaffeensis AB IGG <1:64; E. Chaffeensis AB IGM <1:20
== END 2022-08-02 01:59 | disposition home or self-care (01) ==
PROVIDERS: Emergency Provider Physician Assistant; PCP Nurse Practitioner
DX: S40.262A Insect bite (nonvenomous) of left shoulder, initial encounter (principal); W57.XXXA Bitten or stung by nonvenomous insect and other nonvenomous arthropods, initial encounter; L03.114 Cellulitis of left upper limb; F17.210 Nicotine dependence, cigarettes, uncomplicated
CPT/HCPCS: 86618; 86666; 86757; 99283

== ENCOUNTER 2022-08-21 10:11 | Emergency (ER) | payer BC, MEDICAID, SELFPAY ==
[2022-08-21 10:17] VITALS: BP 138/91; PULSE 92; RESP 18; TEMP 36.9; O2SAT 95; BMI 31.1
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
[2022-08-21] MEDS: morphine 4 mg/mL SDV 1 mL IVP (10:46)
[2022-08-21] MEDS: ondansetron 2 mg/ML SDV 2 mL 4 MG IVP (10:46)
[2022-08-21 11:39] VITALS: BP 132/77; PULSE 85; RESP 18; O2SAT 99
[2022-08-21 11:40] VITALS: BP 132/77; PULSE 87; RESP 18; O2SAT 99
--- NOTE | 2022-08-22 08:47 | DCPLANNER ---
Addendum entered by Tatum Heller 08/23/22 11:10: Patient had a follow up appointment scheduled for 08.23.22 at ortho - patient did attend appointment. Original Note: manager process excellence had message to schedule a follow up appointment for patient with ortho. manager process excellence sent patients to the front office staff at ortho. Patients information will be printed and reviewed. Clinic will call patient with appointment information.
== END 2022-08-21 11:42 | disposition home or self-care (01) ==
PROVIDERS: Emergency Provider Physician Assistant; PCP Nurse Practitioner
DX: S52.322A Displaced transverse fracture of shaft of left radius, initial encounter for closed fracture (principal); V86.59XA Driver of other special all-terrain or other off-road motor vehicle injured in nontraffic accident, initial encounter
CPT/HCPCS: 73080; 73110; 96374; 96375; 99284; J2270; J2405

== ENCOUNTER → 2022-08-23 11:30 | Outpatient (BNVA) | payer BC, MEDICAID, SELFPAY | PROVIDERS: PCP Nurse Practitioner; Visit Provider Orthopaedic Surgery | DX: Z01.818 Encounter for other preprocedural examination (principal); S52.309A Unspecified fracture of shaft of unspecified radius, initial encounter for closed fracture; X58.XXXA Exposure to other specified factors, initial encounter | CPT/HCPCS: 80053; 85025 ==

== ENCOUNTER 2022-08-29 07:24 | Day surgery (SDC) | payer BC, MEDICAID, SELFPAY ==
[2022-08-26 12:59] VITALS: BMI 31.1
--- NOTE | 2022-08-26 13:32 | ANES.PREANE2 ---
Pre-Anesthetic Assessment Height/Weight: Height 1.73 m Weight 92.986 kg Operation Date: 08/29/22 08:50 Proposed Procedures p Open reduction internal fixation of the left radius:82108,T14.8XXA(Bilateral) - Horacio Rodriguez DO Airway Submandibular: within normal limits Cervical ROM: within normal limits Mallampati: Class II Anesthetic Plan ASA status: 2 Anesthesia: General Medications/Allergies Home Medications Medication Instructions Recorded Confirmed Last Taken Type ibuprofen 800 mg tablet 800 mg PO Q8H PRN pain #30 tabs 08/21/21 08/26/22 Unknown Rx hydrocodone 5 mg-acetaminophen 325 5 tab PO DAILY 08/25/22 08/26/22 08/26/22 History mg tablet marijuana PO 08/25/22 08/25/22 Unknown History Allergies Allergy/AdvReac Type Severity Reaction Status Date / Time No Known Allergies Allergy Verified 08/26/22 12:58 PFSH Anesthesia Medical History Gastric ulcer Internal hemorrhoids Surgical History History of laminectomy Previous back surgery Family History Denies family history of Clotting disorder Bleeding disorder Family history of premature coronary artery disease Social History Smoking and tobacco status: current every day smoker cigarettes Alcohol intake: current Alcohol intake frequency: 3 or more drinks per day Alcohol type: beer Substance/Drug Use: current Other substance/drug use details: ofelia Household members: spouse Housing: House 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
[2022-08-29] VITALS (23 sets, daily range): BP systolic 124–214; BP diastolic 76–137; PULSE 64–84; RESP 16–24; TEMP 36.1–36.8; O2SAT 92–99
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
[2022-08-29] MEDS: sodium chloride 0.9% 1,000 ML 30 ML IV (07:48)
--- NOTE | 2022-08-29 08:31 | P.ANESUD_ITS ---
Pre-Anesthetic Update Pre-Anesthetic Assessment: Date of Surgery/Procedure: 08/29/22 Preop Laura gnosis: Radius fracture Proposed Procedure: Operation Date: 08/29/22 08:50 Proposed Procedures p Open reduction internal fixation of the left radius:07337,T14.8XXA(Left) - Horacio Rodriguez, DO Any changes to Pre-Anesthetic Assessment?: No Last Intake: Intake Last Liquid Date 08/28/22 Last Liquid Time 00:00 Last Solid Date 08/28/22 Last Solid Time 20:00 Vitals: Temperature 97.5 F L 08/29/22 07:40 Temperature Source Temporal Artery S can 08/29/22 07:40 Pulse Rate 78 08/29/22 07:40 Respiratory Rate 18 08/29/22 07:40 Blood Pressure 158/99 08/29/22 07:40 Blood Pressure Quyen n 118 08/29/22 07:40 Pulse Oximetry 98 08/29/22 07:40 Oxygen Delivery Me thod Room Air 08/29/22 07:40 Exam: Pre-Anes Outpt Exam: alert, oriented x 3, clear to auscultation bilaterally and regular rate & rhythm Cardiac Studies: No Data to Display
--- NOTE | 2022-08-29 08:50 | W.PM.OPSUD ---
Surgery/Procedure H&P Update DATE OF PROCEDURE: August 29, 2022 DATE H&P PERFORMED: 08/23/22 H&P UPDATE INFORMATION: I have reviewed H&P completed within last 30 days, I have examined patient prior to procedure and No changes to prior documentation PREOP DIAGNOSIS: Radius fracture PLANNED PROCEDURE: Operation Date: 08/29/22 08:50 Proposed Procedures p Open reduction internal fixation of the left radius:09756,T14.8XXA(Left) - Horacio Rodriguez DO
[2022-08-29] MEDS: ceFAZolin 2,000 MG in sodium chloride 0.9% (plus) 50 ML 100 MG IV (09:16)
[2022-08-29] MEDS: lidocaine 1% INJ 10 mL (per mL) (10:02)
--- NOTE | 2022-08-29 10:31 | PM.OP ---
Operative Report Date of procedure: August 29, 2022 Pre-op diagnosis: Preop Diagnosis Left Radius fracture Post-op diagnosis: same Procedure done: ORIF Left radius Surgeon: Horacio Rodriguez Mine Environmental Engineer: Arnie Arnold Mine Environmental Engineer: The surgical product sales consultant, Arnie Arnold, KAY was needed for his expertise for [facility] care. He was important and necessary throughout the procedure to complete in a safe and timely manner. He assisted with patient positioning prepping and draping tissue retraction suctioning of the operative field protection of the critical structures and tissue closure Estimated blood loss (mL): 10 Tourniquet time (min): 30 Procedure: ORIF left radius Patient brought the op suite after going anesthesia was placed in supine position left arm standard out. Prepped draped normal sterile fashion. Areas impingement well-padded. Tourniquet was applied. Skin incision made over the radius with the fracture is the dissection was made down to the bone retractors were placed fracture was reduced. And a 7 hole Luis Enrique plate was placed 3 screws proximal 3 screws distal to the fracture. The butterfly fragment was also reduced to the fracture. Wounds were irrigated closed in a layered fashion with Vicryl and logan. Sterile dressings were applied and patient transferred to the PACU in stable conditions.
[2022-08-29] MEDS: fentaNYL 50 mcg/mL INJ 2mL IVP ×2 (10:36→10:44)
--- NOTE | 2022-08-29 10:54 | PC.NURSE ---
1054 patient handed off to Elisabeth Waters
[2022-08-29] MEDS: metoprolol tartrate 1 mg/1 mL SDV 5 mL 5 MG IVP (10:58)
[2022-08-29] MEDS: hyDRALAzine 20 mg/mL INJ 1 mL 10 MG IVP (11:00)
[2022-08-29] MEDS: HYDROmorphone 1 mg/mL INJ 1 mL 0.5 MG IVP ×3 (11:04→11:30)
[2022-08-29] MEDS: HYDROcodone-acetaminophen 5-325 mg Tablet 2 TAB PO (12:00)
--- NOTE | 2022-08-29 14:35 | ANE.PACU2 ---
Inpatient post-anesthesia follow up: Airway intact: Yes Vital signs: Temperature 98.2 F Pulse Rate 84 Respiratory Rate 20 Blood Pressure 137/86 Pulse Oximetry 97 Oxygen Delivery Me thod Room Air Oxygen Flow Rate Fraction of Inspir ed Oxygen Hydration adequate: Yes Nausea and vomiting: No Pain level: 7 Mental status: Baseline
== END 2022-08-29 12:20 | disposition home or self-care (01) ==
PROVIDERS: PCP Nurse Practitioner; Visit Provider Orthopaedic Surgery
PROC: (CPT 25526; principal; 2022-08-29 08:40)
DX: S52.182A Other fracture of upper end of left radius, initial encounter for closed fracture (principal); F17.210 Nicotine dependence, cigarettes, uncomplicated; V86.99XA Unspecified occupant of other special all-terrain or other off-road motor vehicle injured in nontraffic accident, initial encounter
CPT/HCPCS: 25526; 73090; 76000; C1713; J0360; J0690; J1100; J1170; J2250; J2405; J2704; J3010; J3490; J7030

== ENCOUNTER → 2022-09-15 14:19 | Outpatient (BNVA) | payer BC, MEDICAID, SELFPAY | PROVIDERS: PCP Nurse Practitioner; Visit Provider Physician Assistant | DX: Z98.890 Other specified postprocedural states (principal) | CPT/HCPCS: 73090 ==

== ENCOUNTER 2024-04-11 12:07 | Emergency (ER) | payer SELFPAY ==
[2024-04-11 12:10] VITALS: BP 156/104; PULSE 80; RESP 18; TEMP 36.7; O2SAT 100; BMI 25.0
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
[2024-04-11 13:06] LABS: Basophils % 0.6 %; Eosinophils # 0.4 10^3/uL (0.0-0.8); Eosinophils % 5.6 %; Hematocrit 41.2 % (37-53); Lymphocytes # 2.4 10^3/uL (0.8-4.8); Lymphocytes % 37.5 %; Mean Corpuscular HGB Conc 32.8 g/dL (30-55); Mean Corpuscular Hemoglobin 29.3 pg (27-33); Mean Corpuscular Volume 89.6 fl (82-101); Mean Platelet Volume 10.4 fL (7.4-10.4); Monocytes # 0.6 10^3/uL (0.2-0.9); Monocytes % 9.8 %; Neutrophils # 2.95 10^3/uL (1.8-7.7); Neutrophils % 46.2 %; Nucleated Red Blood Cells % 0 %; Platelet Count 258 10^3/cmm (157-399); Red Cell Distribution Width 12.7 % (12.1-15.1)
[2024-04-11 13:22] LABS: Alanine Aminotransferase 9 U/L (0-41); Albumin Level 3.9 g/dL (3.5-5.2); Alcohol Level 20 mg/dL (0-10); Alkaline Phosphatase 88 U/L (40-130); Anion Gap 16.2 (5-19); Aspartate Amino Transferase 13 U/L (0-40); Blood Urea Nitrogen 8 mg/dL (6-20); Calcium 8.5 mg/dL (8.5-10.5); Carbon Dioxide 23 mmol/L (22-29); Chloride 100 mmol/L (98-107); Creatinine Clr Calc Pharmacy 185.3294; Globulin 2.7 g/dL (1.3-4.6); Glucose 84 mg/dL (65-115); Lactic Sepsis W/Reflex 1.4 mmol/L (0.5-2.2); Osmolality Calculated 278 mOsm/kg (285-295); Potassium 4.2 mmol/L (3.5-5.1); Sodium 135 mmol/L (136-145); Total Bilirubin 0.2 mg/dL (0.15-1.2); Total Protein 6.6 g/dL (6.6-8.7)
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
[2024-04-11] MEDS: ketorolac 60 mg/2 mL INJ IM (13:58)
[2024-04-11] MEDS: orphenadrine 30 mg/mL Inj 2 mL 60 MG IM (14:00)
[2024-04-11 14:07] VITALS: BP 154/95; PULSE 80; RESP 20; O2SAT 99
[2024-04-11 14:35] VITALS: BP 154/95; PULSE 80; RESP 20; O2SAT 99
== END 2024-04-11 14:15 | disposition home or self-care (01) ==
PROVIDERS: Emergency Provider Emergency Medicine; PCP Nurse Practitioner
DX: S06.0XAA Concussion with loss of consciousness status unknown, initial encounter (principal); S16.1XXA Strain of muscle, fascia and tendon at neck level, initial encounter; V89.2XXA Person injured in unspecified motor-vehicle accident, traffic, initial encounter; F17.210 Nicotine dependence, cigarettes, uncomplicated
CPT/HCPCS: 36415; 70450; 72125; 80053; 80307; 83605; 85025; 96372; 99284; J1885; J2360